=== PATIENT | male | born 1975 | race Caucasian/White ===

== ENCOUNTER 2022-11-27 16:45 | Outpatient (RCR) | payer OTHER, SELFPAY | END 2023-01-28 09:31 | disposition home or self-care (01) | PROVIDERS: PCP Family Medicine; Visit Provider Orthopaedic Surgery Sports Medicine | DX: M17.0 Bilateral primary osteoarthritis of knee (principal); Z51.89 Encounter for other specified aftercare | CPT/HCPCS: 97110; 97161 ==

== ENCOUNTER 2023-03-24 08:21 | Outpatient (CLI) | payer OTHER, SELFPAY | END 2023-03-24 08:22 | disposition home or self-care (01) | PROVIDERS: PCP Family Medicine; Visit Provider Family Medicine | DX: Z00.00 Encounter for general adult medical examination without abnormal findings (principal); Z13.1 Encounter for screening for diabetes mellitus; Z13.29 Encounter for screening for other suspected endocrine disorder; Z13.6 Encounter for screening for cardiovascular disorders | CPT/HCPCS: 80061; 82607; 82947 ==

== ENCOUNTER 2024-03-22 08:40 | Outpatient (CLI) | payer OTHER, SELFPAY ==
--- OUTSIDE RECORDS SUMMARY | 2024-03-24 17:19 | XMS_ITS | Clinical Summary ---
Author Organization [employer] [facility] Address [place], [place] [address] Care Team Providers Care Scallop Dredger Name Role Phone Lj Coombs MD Primary Care Provider U navailable Allergies Active Allergy Reactions Criticality Noted Date Comments Penicillins 02/16/2008 Unsure of reaction, allergy was as a child Medications Medication Sig Dispensed Refills Start Date End Date Status cyclobenzaprine (FLEXERIL) 10 mg tabletIndications:Mus lauren spasm Take one tablet by mouth at bedtime. 15 tablet 0 09/26/2014 Active cyclobenzaprine (FLEXERIL) 10 mg tabletIndications:Kal ateral low back pain without sciatica Take 1 tablet by mouth 3 times daily. Muscle relaxer 40 tablet 1 02/08/2015 Active diclofenac (VOLTAREN) 75 mg delayed-release tabletIndications:Kal ateral low back pain without sciatica Take 1 tablet by mouth 2 times daily with meals. Anti-inflammatory 20 tablet 1 02/08/2015 Active Active Problems No known active problems Social History Tobacco Use Types Packs/Day Years Used Date Smoking Tobacco: Never Smokeless Tobacco: Never Tobacco Cessation:Counseling Given: Yes Alcohol Use Standard Drinks/Week Comments No 0 (1 standard drink = 0.6 oz pur e alcohol) Sex and Gender Information Value Date Recorded Sex Assigned at Not on file Gender Identity Not on file Sexual Orientation Not on file Obstetrics History Last Filed Vital Signs Vital Sign Reading Time Taken Comments Blood Pressure 134/71 03/03/2015 1:21 PM CDT Pulse 71 03/03/2015 1:21 PM CDT Temperature 36.6 ??C (97.8 ??F) 09/26/2014 6:40 PM CD T Respiratory Rate - - Oxygen Saturation 100% 09/26/2014 6:40 PM CDT Inhaled Oxygen Concentration - - Weight 84.2 kg (185 lb 9.6 oz) 03/03/2015 1:21 P M CDT Height 188.6 cm (6' 2.25) 02/08/2015 4:12 PM CD T Body Mass Index 23.67 02/08/2015 4:12 PM CDT Plan of Treatment Health Maintenance Due Date Last Done Comments Tdap 1988 Depression screening for age 12+ 1989 HIV for age 15-65 1992 BMI (ht and wt on same day) for age 18+ 1995 Hepatitis C screening for ag e 18-79 1995 Tetanus booster 1997 Colonoscopy through age 75 2022 Lipids for age 45-75 2022 COVID-19 vaccine series (2022- season) 2024 Influenza for age 9-49 03/07/2024 Pneumococcal series for age 6-64 Aged Out No longer eligible based on patient's age to complete this topic Care Teams Scallop Dredger Relationship Specialty Start Date End Date Lj Coombs MD PCP - General 03/14/10
== END 2024-03-22 08:41 | disposition home or self-care (01) ==
LOC: NFLDREF 03-24 17:16
PROVIDERS: PCP Family Medicine; Referring Provider Family Medicine; Visit Provider Family Medicine
DX: Z13.1 Encounter for screening for diabetes mellitus (principal); Z13.6 Encounter for screening for cardiovascular disorders
CPT/HCPCS: 80061; 82947

== ENCOUNTER 2024-04-08 15:38 | Outpatient (CLI) | payer OTHER, SELFPAY ==
--- OUTSIDE RECORDS SUMMARY | 2024-04-08 15:41 | XMS_ITS | Clinical Summary ---
Author Organization [employer] [facility] Address [place], [place] [address] Care Team Providers Care Lens Fabricating Machine Tender Name Role Phone Lj Coombs MD Primary [...] for age 45-75 2022 COVID-19 vaccine series (2023- season) 2024 Influenza for age 9-49 03/07/2024 Pneumococcal series for age 6-64 Aged Out No longer eligible based on patient's age to complete this topic Care Teams Lens Fabricating Machine Tender Relationship Specialty Start Date End Date Lj Coombs MD PCP - General 03/14/10
--- NOTE | 2024-04-08 16:00 | CRLHL7_ITS ---
For Patients: As a result of the Century Cures Act, medical imaging exams and procedure reports are released immediately into your electronic medical record. You may view this report before your referring provider. If you have questions, please contact your health care provider. INDICATION: Sinus pressure. Pain. Headaches. TECHNIQUE: High-resolution CT images of the paranasal sinuses were obtained without contrast. FINDINGS: Maxillary: There is a bilobed shaped retention cyst at the base the right maxillary antrum with the base measuring approximately 2.5 cm and thickness of the proximal the 1.0 cm. The left maxillary sinus is clear. Bilateral ostiomeatal units are patent. Ethmoid: Ethmoid air cells are clear bilaterally. Frontal: Frontal air cells are well developed. There is mild focal mucosal thickening in the bilateral inferior frontal recesses. Sphenoid: The sphenoid air cells and sphenoid ethmoidal recesses are clear patent. Nasal fossa: Nasal septum is near midline posterior nasal fossa and nasopharynx are unremarkable. IMPRESSION: Bilobed inflammatory retention cyst at the base of the right maxillary antrum. Patent bilateral ostiomeatal units. Mild mucosal thickening in the inferior frontal recesses. The other paranasal sinuses are clear. Please note that all CT scans at this facility use dose modulation, iterative reconstruction, and/or weight-based dosing when appropriate to reduce radiation dose to as low as reasonably achievable. Dictated by Ritchie Turner MD @ 04/12/2024 6:29:33 AM (Electronically Signed)
== END 2024-04-08 15:39 | disposition home or self-care (01) ==
PROVIDERS: PCP Family Medicine; Visit Provider Otolaryngology
DX: J32.9 Chronic sinusitis, unspecified (principal); J34.1 Cyst and mucocele of nose and nasal sinus; R51.9 Headache, unspecified
CPT/HCPCS: 70486

== ENCOUNTER 2024-07-04 19:34 | Outpatient (CLI) | payer OTHER, SELFPAY ==
--- OUTSIDE RECORDS SUMMARY | 2024-07-03 01:46 | XMS_ITS | Data Portability ---
Author Organization [place] [facility] [employer] [facility] Address [address] [place] [address] Assessment Encounter Date Assessment Date Assessment LastModified by Organization Details LastModified Time 07/02/2024 07/02/2024 ASSESSMENT: Patient is a good candidate for conservative care and the prognosis is for a favorable outcome that achieves the patients' goals. We discussed etiology, activity modifications, home care, and other treatment options. Initially, it is recommended that the patient receive in-office treatment 1 times per week for 8 weeks at which time a re-evaluation will be performed to determine an appropriate change in plan. Initially, treatment will focus on joint manipulation to restore range of motion and reduce pain. We will slowly progress to therapeutic exercises and activities to improve function, strength, and stability may also be used as warranted. If the patient is not responding as expected, more invasive procedures will be discussed along with a referral. All considerations above were discussed with the patient and questions answered to satisfaction. If the patient should have any additional questions, or should the condition evolve or worsen, the patient should not hesitate to contact our office. ASSESSMENT: Patient is a good candidate for conservative care and the prognosis is for a favorable outcome that achieves the patients' goals. We discussed etiology, activity modifications, home care, and other treatment options. Initially, it is recommended that the patient receive in-office treatment 1 times per week for 8 weeks at which time a re-evaluation will be performed to determine an appropriate change in plan. Initially, treatment will focus on joint manipulation to restore range of motion and reduce pain. We will slowly progress to therapeutic exercises and activities to improve function, strength, and stability may also be used as warranted. If the patient is not responding as expected, more invasive procedures will be discussed along with a referral. All considerations above were discussed with the patient and questions answered to satisfaction. If the patient should have any additional questions, or should the condition evolve or worsen, the patient should not hesitate to contact our office. ecram Not available 07/02/2024 16:46:36 Plan of Treatment Reminders Order Date Submit Date Provider Last Modified By Organization Details Last Modified Time Details Appointments None record ed. Lab None record ed. Referral None record ed. Procedures None record ed. Surgeries None record ed. Imaging None record ed. Medication Orders None record ed. Patient TargetsNo targets recorded. Patient InstructionsNo instructions recorded. Reason for Referral None Reported. Problems Name Problem SNOMED Code Status Onset Date Resolution Date Notes Provider Name and Address Organization Details Recorded Time Thoracic segmental dysfunction 403807535 Active 2023 Hector Penn DC [address], [place], [address], [facility] 4 16:46:34 Low back pain 618501991 Active 2023 Hector Penn DC [address], [place], [address], [facility] 4 16:46:34 Lumbar segmental dysfunction 843736361 Active 2023 Hector Penn DC [address], [place], [address], [facility] 4 16:46:34 Somatic dysfunction of sacral spine 460095527 Active 2023 Hector Penn DC [address], [place], [address], [facility] 4 16:46:34 Neck pain 18426626 Active 2023 Hector Penn DC [address], [place], [address], [facility] 4 16:46:37 Cervical segmental dysfunction 196957110 Active 2023 Hector Penn DC [address], [place], [address], [facility] 4 16:46:37 Problem Notes None recorded. Procedures Surgical History Date Name Laterality Status Provider Name and Address Organization Details Recorded Time 06990: Spinal manipulation , 3 to 4 regions completed Hector Penn DC [address] [place] [address], [place], [address], [facility] 07/02/2024 16:47:55 Imaging Results None recorded. Procedure Notes None recorded. Medical Equipment None Reported. Vitals None Recorded Social History None recorded. Functional Status None recorded. Mental Status None recorded. Family History Nothing Reported. Medical History No medical history recorded. Past Encounters Encounter ID Performer Location Encounter Start Date Encounter Closed Date Diagnosis/Indication Diagnosis SNOMED-CT Code Diagnosis ICD10 Code [id number] FRANCIS Lucas [facility] [address] [place] [address] [place] [address] 07/02/2024 17:08:52 07/02/2024 17:30:22 Lumbar segmental dysfunction 795590433 M99.03 Low back pain 402985238 M54.50 Somatic dy sfunction of sacral spine 355490380 M99.04 Thoracic s egmental dysfunction 607432261 M99.02 Cervical s egmental dysfunction 322810906 M99.01 Neck pain 37080634 M54.2 Health Concerns Section Related Observation LastModified by Organization Detai ls LastModified Time None Recorded Concern Status LastModified by Organization Details LastModified Time None Recorded Advance Directives Directive None Recorded Payers Encounter Date Sequence Insurance Name Policy Number Policy Garnett Covered Member ID Garnett Member ID Guarantor Name 07/02/2024 1 [facility] [id number] Jason Clayton [id number] Jason Clayton Notes Date Note Type Note Provider Name and Address Organization Details Recorded Time 07/02/2024 text/html HPI - Cervical SpineReported bypatient.Location: bilateral Quality:aching Severity:moderate Duration:1 weeks Timing:gradual Alleviating Factors:rest Aggravating Factors:bending; twisting/turning; carrying Associated Symptoms:no numbness/tinglingHP I - Lumbar SpineReported bypatient.Location: bilateral; With radiation to knee Quality:aching Severity:moderate Timing:occasional Aggravating Factors:walking; lifting; carrying Alleviating Factors:rest Hector Penn DC [address], [place], [address], [facility] 07/02/2024 17:27:06
--- NOTE | 2024-07-20 09:51 | W.PM.SLEEP ---
Sleep Study Details Details Interpreting Provider: Hubert Date of Sleep Study: 07/04/24 Sleep Study Details: STUDY TYPE:? Home unattended ? BMI:? 23.8 ORDERING PROVIDER:? Hubert INDICATION:? Concern about sleep apnea ? SLEEP SUMMARY:? 413 minutes monitored RESPIRATORY SUMMARY:? AHI 7.5, low oxygen 88, 0.3% of study oxygen less than 90, snoring 71.3% PERIODIC LIMB MOVEMENTS OF SLEEP:? Not record CARDIAC:? Range 45-106, mean 57.1 beats per minute IMPRESSION:? Mild obstructive sleep apnea RECOMMENDATION: Treatment options include CPAP dental appliance and/or airway expansion surgery.
== END 2024-07-04 19:35 | disposition home or self-care (01) ==
LOC: SLEEP 19:35
PROVIDERS: PCP Family Medicine; Visit Provider Otolaryngology
DX: G47.33 Obstructive sleep apnea (adult) (pediatric) (principal)
CPT/HCPCS: 95806

== ENCOUNTER 2025-03-28 08:40 | Outpatient (CLI) | payer OTHER, SELFPAY | END 2025-03-28 08:41 | disposition home or self-care (01) | LOC: NFLDREF 04-01 12:29 | PROVIDERS: PCP Family Medicine; Referring Provider Family Medicine; Visit Provider Family Medicine | DX: R73.09 Other abnormal glucose (principal); Z13.1 Encounter for screening for diabetes mellitus; R25.2 Cramp and spasm; F41.9 Anxiety disorder, unspecified | CPT/HCPCS: 80048; 82947; 83735 ==